=== PATIENT | female | born 1965 | race African-American/Black ===

== ENCOUNTER 2016-10-29 16:43 | Emergency (ER) | payer MEDICAID ==
[~2016-10-29] VITALS: Ht 154.9 cm; Wt 64.0 kg
[~2016-10-29 16:43] MED LIST: AMLODIPINE BESYL5 MG ORAL; ATORVASTATIN CA20 MG ORAL; AZITHROMYCIN250 MG ORAL; COLACE100 MG ORAL; HYDROCHLOROTH12.5 M2 ORAL; LEVAQUIN500 MG ORAL; MEDROL DOSEPAK4 MG ORAL; MONTELUKAST SOD10 MG ORAL; NORCO 10-325 T1 EACH ORAL; PRILOSEC20 MG ORAL; PROMETHAZINE-C118 M1 ORAL; TEMAZEPAM15 MG ORAL
--- NOTE | 2016-10-29 17:25 | Emergency Room Report ---
History of Present Illness General Chief Complaint: Abdominal Pain Source: Patient, Medical Record Present Illness HPI Patient 50-year-old female who presented after increased epigastric pain. Patient previously been seen emergency department for similar symptoms in the past. Patient previous diagnosis of pancreatitis and possible internal hernia. Patient had increased epigastric pain. She denied any vomiting. She reported having sharp pain which did not radiate. Patient denies any fever. She denied dysuria. Allergies: Coded Allergies: IBUPROFEN (Verified Allergy, Unknown, 02/19/14) Patient History Past Medical History: see triage record Last Menstrual Period: menopause Now: No : 3 Para: 3 Reviewed Nursing Documentation: PMH: Agreed, PSxH: Agreed Nursing Documentation-PMH Past Medical History: No History, Except For Hx Cardiac Problems: Yes - high cholesterol Hx Hypertension: Yes Hx Cancer: No Hx Gastrointestinal Problems: No Hx Neurological Problems: No Review of Systems All Other Systems: negative except mentioned in HPI Physical Exam Vital Signs Date Time Temp Pulse Resp B/P Pulse Ox O2 Delivery O2 Flow Rate FiO2 10/29/16 16:55 98.4 63 17 120/81 99 Room Air Sp02 EP Interpretation: reviewed, normal General Appearance: normal inspection, well appearing, no apparent distress, alert, GCS 15 Head: atraumatic ENT: normal ENT inspection, hearing grossly normal, normal voice Neck: normal inspection, full range of motion, supple, no bony tend Respiratory: normal inspection, lungs clear, normal breath sounds, no respiratory distress, no retraction, no wheezing Cardiovascular #1: regular rate, rhythm, no edema Gastrointestinal: normal inspection, normal bowel sounds, non tender, soft, no guarding, no hernia Genitourinary: no CVA tenderness Musculoskeletal: normal inspection, back normal, normal range of motion Neurologic: normal inspection, alert, oriented x3, responsive, chemic mangler III-XII nml as tested, speech normal Psychiatric: normal inspection, judgement/insight normal, mood/affect normal Skin: normal inspection, normal color, no rash Medical Decision Making Diagnostic Impression: Primary Impression: Abdominal pain Additional Impression: Diverticula of small intestine ER Course Patient presented for abdominal pain. Differential diagnoses included ischemic bowel, appendicitis, perforated viscus, abdominal aortic aneurysm, inferior myocardial infarction, viral gastroenteritis Because of complexity of patient's case laboratory testing and imaging studies were ordered.A KUB one view interpreted by me showed no evidence of obstruction or free air. Patient was given IV Pepcid for abdominal pain.The patient's old records were reviewed and patient was noted to have prior history of diverticuli of the jejunum. The patient was advised dietary modifications. Patient was advised followup with her primary care physician in the next one to 2 days. Patient was given prescription for Bentyl. Labs Test 10/29/16 17:02 10/29/16 17:15 Urine Color Pale yellow Urine Appearance Clear Urine pH 6 (4.5-8.0) Urine Specific [place] 1.020 (1.005-1.035) Urine Protein Negative (NEGATIVE) Urine Glucose (UA) Negative (NEGATIVE) Urine Ketones Negative (NEGATIVE) Urine Occult Blood Negative (NEGATIVE) Urine Nitrite Negative (NEGATIVE) Urine Bilirubin Negative (NEGATIVE) Urine Urobilinogen Normal MG/DL (0.0-1.0) Urine Leukocyte Esterase 1+ (NEGATIVE) Urine RBC 0-2 /HPF (0 - 2) Urine WBC 2-4 /HPF (0 - 2) Urine Squamous Epithelial Cells Few /LPF (NONE/OCC) Urine Bacteria Few /HPF (NONE) White Blood Count 11.2 K/UL (4.8-10.8) Red Blood Count 4.67 M/UL (4.20-5.40) Hemoglobin 13.5 G/DL (12.0-16.0) Hematocrit 39.2 % (37.0-47.0) Mean Corpuscular Volume 84 FL (80-99) Mean Corpuscular Hemoglobin 28.9 PG (27.0-31.0) Mean Corpuscular Hemoglobin Concent 34.4 G/DL (32.0-36.0) Red Cell Distribution Width 12.7 % (11.6-14.8) Platelet Count 225 K/UL (150-450) Mean Platelet Volume 7.6 FL (6.5-10.1) Neutrophils (%) (Auto) 69.7 % (45.0-75.0) Lymphocytes (%) (Auto) 22.4 % (20.0-45.0) Monocytes (%) (Auto) 6.3 % (1.0-10.0) Eosinophils (%) (Auto) 0.2 % (0.0-3.0) Basophils (%) (Auto) 1.4 % (0.0-2.0) Prothrombin Time 10.2 SEC (9.30-11.50) Prothromb Time International Ratio 1.0 (0.9-1.1) Activated Partial Thromboplast Time 21 SEC (23-33) Sodium Level 140 mEQ/L (135-145) Potassium Level 3.6 mEQ/L (3.4-4.9) Chloride Level 101 mEQ/L (98-107) Carbon Dioxide Level 23 mEQ/L (20-30) Anion Gap 16 (5-15) Blood Urea Nitrogen 13 mg/dL (7-23) Creatinine 0.6 mg/dL (0.5-0.9) Estimat Glomerular Filtration Rate > 60 mL/min (>60) Glucose Level 89 mg/dL (74-106) Calcium Level 10.3 mg/dL (8.6-10.2) Total Bilirubin 0.3 mg/dL (0.0-1.2) Aspartate Amino Transf (AST/SGOT) 17 U/L (5-40) Alanine Aminotransferase (ALT/SGPT) 14 U/L (3-33) Alkaline Phosphatase 59 U/L (35-104) Troponin I < 0.30 ng/mL (<=0.30) Total Protein 7.3 g/dL (6.6-8.7) Albumin 4.4 g/dL (3.5-5.2) Globulin 2.9 g/dL Albumin/Globulin Ratio 1.5 (1.0-2.7) Lipase 31 U/L (< 60) EKG Diagnostic Results Rate: normal Rhythm: NSR ST Segments: no acute changes ASA given to the pt in ED: No Last Vital Signs Date Time Temp Pulse Resp B/P Pulse Ox O2 Delivery O2 Flow Rate FiO2 10/29/16 16:55 98.4 63 17 120/81 99 Room Air Status: improved Disposition: HOME, SELF-CARE Condition: Stable Scripts Dicyclomine Hcl* (BENTYL*) 10 Mg Capsule 10 MG ORAL FOUR TIMES A DAY, #20 CAP Prov: Leon Cui 10/29/16 Referrals: NON PHYSICIAN (PCP) Leon Cui October 29, 2016 17:25
[2016-10-29] MEDS ORDERED: Famotidine 20 MG/ 2ML VIAL IVP ONE (17:30)
[2016-10-29 17:31] LABS: APPEARANCE,URINE CLEAR; KETONES,URINE NEGATIVE (NEGATIVE); LEUKOCYTE ESTERASE ,URINE 1+ (NEGATIVE); NITRITE,URINE NEGATIVE (NEGATIVE); PH,URINE 6 (4.5-8.0); PROTEIN,URINE NEGATIVE (NEGATIVE); UROBILINOGEN,URINE NORMAL MG/DL (0.0-1.0)
[2016-10-29 17:45] LABS: BACTERIA,URINE FEW /HPF; RBC,URINE 0-2 /HPF (0 - 2); SQUAMOUS EPITHELIAL CELL,UR FEW /LPF (NONE/OCC)
[2016-10-29 17:48] LABS: BASOPHILS % (AUTO) 1.4 % (0.0-2.0); EOSINOPHILS % (AUTO) 0.2 % (0.0-3.0); LYMPHOCYTES % (AUTO) 22.4 % (20.0-45.0); MEAN CORPUSCULAR HEMOGLOBIN 28.9 PG (27.0-31.0); MEAN CORPUSCULAR HGB CONC 34.4 G/DL (32.0-36.0); MEAN CORPUSCULAR VOLUME 84 FL (80-99); MEAN PLATELET VOLUME 7.6 FL (6.5-10.1); MONOCYTES % (AUTO) 6.3 % (1.0-10.0); NEUTROPHILS % (AUTO) 69.7 % (45.0-75.0); PLATELET COUNT 225 K/UL (150-450); PROTHROMBIN TIME 10.2 SEC (9.30-11.50); RED BLOOD COUNT 4.67 M/UL (4.20-5.40); RED CELL DISTRIBUTION WIDTH 12.7 % (11.6-14.8); WHITE BLOOD COUNT 11.2 K/UL (4.8-10.8)
[2016-10-29 18:01] VITALS: BP 127/75
[2016-10-29 18:14] LABS: TROPONIN I < 0.30 ng/mL (<=0.30)
[2016-10-29 18:17] LABS: ALANINE AMINOTRANSFERASE 14 U/L (3-33); ALBUMIN/GLOBULIN RATIO 1.5 (1.0-2.7); ANION GAP 16 (5-15); ASPARTATE AMINO TRANSFERASE 17 U/L (5-40); CALCIUM 10.3 mg/dL (8.6-10.2); CARBON DIOXIDE 23 mEQ/L (20-30); CHLORIDE 101 mEQ/L (98-107); CREATININE 0.6 mg/dL (0.5-0.9); GLOMERULAR FILTRATION RATE > 60 mL/min (>60); HEMOLYSIS 9; LIPASE 31 U/L (< 60); POTASSIUM 3.6 mEQ/L (3.4-4.9); SODIUM 140 mEQ/L (135-145); TOTAL PROTEIN 7.3 g/dL (6.6-8.7)
[2016-10-29] MEDS ORDERED: BENTYL10 MG ORAL (18:38)
[2016-10-29] MEDS ORDERED: Morphine Sulfate 4mg/ml Inj IVP ONE (18:45)
[2016-10-29] MEDS ORDERED: Dicyclomine HCl 10mg/5ml oral soln ORAL ONE (18:45)
[2016-10-29 19:15] VITALS: BP 99/68
--- NOTE | 2016-10-30 13:32 | Diagnostic Imaging Report ---
Indication: PAIN Technique: One upright only view of the abdomen Comparison: 05/29/2016 Findings: No unusual air-fluid levels. No free intraperitoneal air. Unremarkable bowel gas pattern. No unusual masses or calcifications. Metallic foreign body projects over the left midabdomen, not evident previously Impression: Limited exam. No acute abnormality. Metallic foreign body projecting over the left midabdomen. May be ingested, may be extrinsic to the patient.
--- NOTE | 2016-10-30 18:35 | Cardiology Report ---
APPROVED REPORT EKG Measurement Heart [id number] Normal sinus rhythm Septal infarct, age undetermined Abnormal ECG
== END 2016-10-29 19:10 | disposition home or self-care (01) ==
LOC: EMR 17:15
DX: K57.10 Diverticulosis of small intestine without perforation or abscess without bleeding (principal); R10.9 Unspecified abdominal pain; Z88.6 Allergy status to analgesic agent; I10 Essential (primary) hypertension
CPT/HCPCS: 36415; 74000; 80053; 81003; 83690; 84484; 85025; 85610; 85730; 93005; 96374; 96375; 99284; J2405; S0028

== ENCOUNTER 2016-10-31 07:42 | Emergency (ER) | payer MEDICAID ==
[~2016-10-31] VITALS: Ht 157.5 cm; Wt 64.0 kg
[~2016-10-31 07:42] MED LIST changes: +BENTYL10 MG ORAL
[2016-10-31 08:15] VITALS: BP 110/75
[2016-10-31 08:35] VITALS: BP 110/75
[2016-10-31] MEDS ORDERED: PROMETHAZINE-C118 M1 ORAL (08:37)
--- NOTE | 2016-10-31 09:24 | Emergency Room Report ---
History of Present Illness General Chief Complaint: Flu Like Symptoms Source: Patient Present Illness HPI 30-year-old female presents to ED for evaluation. States that since yesterday she's been experiencing congestion, cough, runny nose and headache. Pain is throbbing, 5/10, nonradiating. Denies fevers or chills. Denies sore throat. Denies sick contacts or recent travel. Patient states that she was seen here in ER 2 days ago for abdominal pain and was subsequently discharged on Bentyl. States that the Bentyl is making her nauseous. No other aggravating or relieving factors. Denies any other associated symptoms Allergies: Coded Allergies: IBUPROFEN (Verified Allergy, Unknown, 02/19/14) Patient History Past Medical History: HTN Past Surgical History: none Pertinent Family History: none Social History: Denies: alcohol use, drug use, smoking Now: No Immunizations: UTD Reviewed Nursing Documentation: PMH: Agreed, PSxH: Agreed Nursing Documentation-PMH Past Medical History: No History, Except For Hx Hypertension: Yes Hx Cancer: No Hx Gastrointestinal Problems: No Hx Neurological Problems: No Review of Systems All Other Systems: negative except mentioned in HPI Physical Exam Vital Signs Date Time Temp Pulse Resp B/P Pulse Ox O2 Delivery O2 Flow Rate FiO2 10/31/16 07:49 98.4 72 17 110/75 97 Room Air Sp02 EP Interpretation: reviewed, normal General Appearance: no apparent distress, alert, GCS 15, non-toxic Head: normocephalic Eyes: bilateral eye PERRL, bilateral eye normal inspection ENT: hearing grossly normal, normal pharynx, no angioedema, normal voice Neck: normal inspection Respiratory: chest non-tender, lungs clear, normal breath sounds, speaking full sentences Cardiovascular #1: normal inspection Gastrointestinal: normal inspection Rectal: deferred Genitourinary: no CVA tenderness Musculoskeletal: normal inspection Neurologic: alert, oriented x3, responsive, motor strength/tone normal, sensory intact, speech normal Psychiatric: normal inspection, judgement/insight normal Skin: normal inspection Lymphatic: normal inspection Medical Decision Making Diagnostic Impression: Primary Impression: Upper respiratory infection Qualified Codes: J06.9 - Acute upper respiratory infection, unspecified ER Course Hospital Course 50-year-old female presents to ED complaining of cough, congestion symptoms x 2 days Differential diagnoses include: URI, pharyngitis, otitis media, asthma Clinical course Patient placed on stretcher. After initial history, physical exam reveals a middle aged female in no acute distress. Bilateral TM unremarkable. No pharyngeal erythema. No tonsillar exudates. No lymphadenopathy. lungs clear. abdomen soft. Clinical findings consistent with URI. Reassurance given Diagnosis - URI Stable and discharged home with Rx Cough syrup. Instructed to followup with PMD. Return to ED if symptoms recur or worsen Last Vital Signs Date Time Temp Pulse Resp B/P Pulse Ox O2 Delivery O2 Flow Rate FiO2 10/31/16 08:35 98.4 17 110/75 97 Room Air 10/31/16 08:00 72 Status: improved Disposition: HOME, SELF-CARE Condition: Stable Scripts Codeine/Promethazine Hcl* (PROMETHAZINE-CODEINE SYRUP*) 118 Ml Syrup 5 ML ORAL Q6H Y for For Cough for 5 Days, ML 0 Refills Prov: TALI MCHUGH M.D. 10/31/16 Patient Instructions: Upper Respiratory Infection, Adult, [id number] TALI MCHUGH M.D. October 31, 2016 09:24
== END 2016-10-31 08:35 | disposition home or self-care (01) ==
LOC: EMR 08:00
DX: J06.9 Acute upper respiratory infection, unspecified (principal); I10 Essential (primary) hypertension
CPT/HCPCS: 99283

== ENCOUNTER 2018-05-21 09:08 | Emergency (ER) | payer MEDICAID ==
[~2018-05-21] VITALS: Ht 157.5 cm; Wt 63.5 kg
[2018-05-21] MEDS ORDERED: NIACIN750 MG ORAL (09:22)
[2018-05-21 09:27] VITALS: BP 120/81
[2018-05-21] MEDS ORDERED: NEOSPORIN OINTM30 GM TP (10:08)
[2018-05-21 10:11] VITALS: BP 121/84
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
== END 2018-05-21 10:13 | disposition home or self-care (01) ==
LOC: EMR 09:32
DX: S01.301A Unspecified open wound of right ear, initial encounter (principal); Y04.2XXA Assault by strike against or bumped into by another person, initial encounter; Y92.89 Other specified places as the place of occurrence of the external cause; I10 Essential (primary) hypertension; Z88.6 Allergy status to analgesic agent
CPT/HCPCS: 99282

== ENCOUNTER 2018-08-12 09:27 | Emergency (ER) | payer MEDICAID ==
[~2018-08-12] VITALS: Ht 157.5 cm; Wt 67.1 kg
[~2018-08-12 09:27] MED LIST changes: +NEOSPORIN OINTM30 GM TP; +NIACIN750 MG ORAL
--- NOTE | 2018-08-12 09:46 | NUR ---
ED Nurse Note: Pt came into the ER w/ complains of n,v,d since last night. Pt is also complaining of right shoulder pain since last night. Rating the pain a 10/10 in the area. Non radiating. A + O x4. Ambulatory. Skin warm to touch.
[2018-08-12 09:54] VITALS: BP 122/85
[2018-08-12] MEDS ORDERED: Methocarbamol 750mg tab ORAL ONE (10:30)
[2018-08-12] MEDS ORDERED: HYDROcodone/Acetamin 10/325 tab ORAL ONE (10:30)
[2018-08-12] MEDS ORDERED: TAMIFLU75 MG ORAL (10:46)
[2018-08-12] MEDS ORDERED: ZOFRAN4 MG ORAL (10:46)
[2018-08-12 10:57] VITALS: BP 122/98
--- NOTE | 2018-08-12 10:58 | NUR ---
ER DISCHARGE NOTE: Patient is cleared to be discharged per ERMD, pt is aox4, on room air, with stable vital signs. pt was given dc and prescription instructions, pt was able to verbalize understanding, pt id band removed without complications. pt is able to ambulate with steady gait. pt took all belongings.
--- NOTE | 2018-08-12 11:04 | Emergency Room Report ---
History of Present Illness General Chief Complaint: Flu Like Symptoms Source: Patient Present Illness HPI Patient presents with complaints of increased right shoulder pain Also reports possible flu with nausea and vomiting Patient complaint of headache Denies any chest pain denies any fevers however she had a sensation of hot and cold Denies any neck pain or photophobia Denies any recent fall or trauma Denies any travel Allergies: Coded Allergies: IBUPROFEN (Verified Allergy, Unknown, 02/19/14) Patient History Past Medical History: see triage record Pertinent Family History: none Last Menstrual Period: none Now: No Reviewed Nursing Documentation: PMH: Agreed; PSxH: Agreed Nursing Documentation-PMH Past Medical History: No History, Except For Hx Hypertension: Yes Hx Cancer: No Hx Gastrointestinal Problems: No Hx Neurological Problems: No Review of Systems All Other Systems: negative except mentioned in HPI Physical Exam Vital Signs Date Time Temp Pulse Resp B/P (MAP) Pulse Ox O2 Delivery O2 Flow Rate FiO2 08/12/18 09:38 98.2 76 18 129/96 98 Room Air 08/12/18 09:54 99 Sp02 EP Interpretation: reviewed, normal General Appearance: well appearing, no apparent distress Head: normocephalic, atraumatic Eyes: bilateral eye PERRL, bilateral eye EOMI ENT: normal pharynx, normal voice Neck: supple, no meningismus Respiratory: lungs clear, no retraction, no accessory muscle use Cardiovascular #1: regular rate, rhythm Gastrointestinal: non tender, soft Musculoskeletal: other - Uncomfortable on the right shoulder with any attempts of movement any slight touch the anterior aspect Neurologic: alert, oriented x3, responsive Skin: normal color, no rash Lymphatic: no adenopathy Medical Decision Making Diagnostic Impression: Primary Impression: flu like symptoms ER Course Multiple differentials are considered given the patient's presentation Including but not limited to meningitis, flu Pneumonia Patient has a fairly benign evaluation She reports that she has been attempting to get MRI of her right shoulder for several months now There was no other acute trauma and I did not feel imaging was required Review of the patient's CURES reveals medications including but not limited to Soma, Phenergan with codeine, [place] on a monthly basis by pain management Patient was provided with Tamiflu, along with Zofran here I encouraged her to continue close outpatient follow-up for pain management consideration Also discuss become initial medications with her physician Last Vital Signs Date Time Temp Pulse Resp B/P (MAP) Pulse Ox O2 Delivery O2 Flow Rate FiO2 08/12/18 10:57 99.1 79 18 122/98 100 Room Air 99 Status: improved Disposition: HOME, SELF-CARE Condition: Improved Scripts Ondansetron (Zofran) 4 Mg Tablet 4 MG ORAL Q8H PRN for Nausea & Vomiting, #10 TAB 0 Refills Prov: Woo Coreas DO 08/12/18 Oseltamivir Phosphate (Tamiflu) 75 Mg Capsule 75 MG ORAL TWICE A DAY for 5 Days, CAP Prov: Woo Coreas DO 08/12/18 Referrals: [facility] (PCP) Patient Instructions: Influenza, Adult, [id number], Shoulder Pain, Easy-to- Read Additional Instructions: Patient is provided with the discharge instructions notified to follow up with primary doctor in the next 2-3 days otherwise return to the er with any worsening symptoms. Please note that this report is being documented using [employer] technology. This can lead to erroneous entry secondary to incorrect interpretation by the dictating instrument. Woo Coreas DO Aug 12, 2018 11:04
== END 2018-08-12 10:58 | disposition home or self-care (01) ==
LOC: EMR 09:48
DX: J11.1 Influenza due to unidentified influenza virus with other respiratory manifestations (principal); I10 Essential (primary) hypertension; Z88.6 Allergy status to analgesic agent
CPT/HCPCS: 99282